=== PATIENT | male | born 1985 | race Caucasian/White ===

== ENCOUNTER 2022-02-03 21:55 | Emergency (ER) | payer MEDICAID, SELFPAY ==
[2022-02-03 21:56] VITALS: BP 179/106; PULSE 95; RESP 16; TEMP 36.2; O2SAT 97; BMI 40.5
[2022-02-03 22:59] LABS: Absolute Lymphocyte Count 1.82 X10^3/uL (0.83-4.51); Absolute Neutrophil Count 4.9 X10^3/uL (2.0-7.7); Basophil# 0.03 X10^3/uL; Basophil% 0.4 % (0-1); Eosinophil# 0.12 X10^3/uL; Eosinophils% 1.6 % (0-5); Hematocrit 44.5 % (40-54); Lymphocyte # 1.82 X10^3/ul (0.83-4.51); Lymphocyte % 24.4 % (19-41); Mean Corp Hgb Conc 33.7 g/dL (32-36); Mean Corpuscular Hgb 30.2 pg (27.0-32.0); Mean Corpuscular Volume 89.7 fL (80-94); Mean Platelet Vol. 10.3 fl (6.2-12.0); Monocyte# 0.62 X10^3/uL; Monocyte% 8.3 % (0-10); NRBC Flagged by Analyzer 0 % (0-5); Neutrophil # 4.86 X10^3/uL (2.7-7.7); Platelet Count 268 K/mm3 (150-450); RBC Distribution Width CV 13.6 % (11.6-14.6); RBC Distribution Width SD 45.1 fl (35.1-43.9); Red Blood Count 4.96 M/mm3 (4.6-6.2); White Blood Count 7.5 K/mm3 (4.4-11.0)
[2022-02-03 23:00] LABS: Bacteria 0 SEEN /hpf (None Seen); Mucous, Urine 0 SEEN /hpf (<or=2+); Squamous Epithelial Cells - UA 0 SEEN /hpf (0-5)
[2022-02-03 23:06] LABS: Color, Urine Yellow (Yellow); Glucose, Dipstick Normal (Normal); Ketone-Dipstick Negative (Negative); Leukocyte Esterase-Dipstick Negative /ul (Negative); Nitrite-Dipstick Negative (Negative); Occult Blood-Urine 250 /ul (Negative); Protein-Dipstick 30 mg/dl (Negative); Urine Bilirubin Dipstick Negative (Negative); Urine Clarity Cloudy (Clear); Urine Urobilinogen Normal (Normal)
[2022-02-03 23:13] LABS: Anion Gap 5 (5-15); BUN 11 mg/dL (7-18); BUN/Creat Ratio 11.3 RATIO (10-20); Calcium,Total 9.2 mg/dL (8.5-10.1); Chloride 107 mmol/L (98-107); Creatinine, Serum 0.97 mg/dL (0.70-1.30); EST Glomerular Filtration Rate 94 mL/min (>60); Est Glom Filt Rate - Afr Amer 113 mL/min (>60); Estimated Creatinine Clearance 128.25 ml/min; Glucose 106 mg/dL (74-106); Potassium 4.1 mmol/L (3.5-5.1); Sodium Level 141 mmol/L (136-145)
[2022-02-03 23:13] LABS: White Blood Cells 0-5 SEEN /hpf (0-5)
[2022-02-03 23:14] LABS: Red Blood Cells-Urine > 100 SEEN /hpf (0-5)
[2022-02-03 23:38] LABS: International Normalized Ratio 1.1; Prothrombin Time (Protime)PT. 13.4 SECONDS (11.7-14.9)
[2022-02-03 23:39] LABS: Partial Thromboplast Time 42.9 Seconds (24.1-36.2)
--- NOTE | 2022-02-04 00:17 | EDS_ITS ---
HPI History of Present Illness Chief Complaint: Complaint Narrative Narrative: Patient is a 36-year-old male who states that today he urinated and noticed there was bright red blood in it. He states it was almost clotted. He denies any trauma. He denies any fevers or chills or dysuria. He denies any testicular pain or masses. He states he went over to a friend's house who was a nurse who performed a urine sample on him and it did show blood. He states that they had concerned this could be related to a kidney stone so he decided to come in for evaluation. He states despite this concern for kidney stone he does not have any back pain and he reports he has never had any type of stones in the past. PFSH PFSH Home Medications NK 02/03/22 [History Last Taken Unknown] Allergy/AdvReac Type Severity Reaction Status Date / Time No Known Allergies Allergy Verified 02/03/22 21:56 Social History Smoking Status: Light Smoker (<10/day) ROS [facility] ED Constitutional Constitutional ED: Denies chills or fever(s) ENT ENT ED: Denies sore throat Cardiovascular Cardiovascular: Denies chest pain Respiratory/Chest Respiratory/Chest: Denies cough or dyspnea Gastrointestinal Gastrointestinal: Denies abdominal pain, diarrhea, nausea or vomiting Genitourinary Genitourinary ED: Reports hematuria; Denies dysuria Musculoskeletal Musculoskeletal: Denies back pain or myalgias Integumentary Denies rash Neurologic Neurologic: Denies headache(s) Hematologic/Lymphatic Hematologic/Lymphatic: Denies easy bleeding or easy bruising EXAM Physical Exam Const Vital Signs: 02/03/22 21:56 02/04/22 00:23 Temperature 97.1 F L Temperature Source Temporal Pulse Rate 95 81 Respiratory Rate 16 15 Blood Pressure 179/106 H Blood Pressure Mean 130 Pulse Ox 97 97 Oxygen Delivery Method Room Air Positive well nourished and well developed General Appearance ED: well developed Eyes PERRL and EOMs intact bilaterally Neck supple Resp normal respiratory effort and clear to auscultation bilaterally Cardio regular rate and regular rhythm GI normal to inspection, nondistended, normoactive bowel sounds, non-tender, non- distended and no masses Auscultation: normoactive bowel sounds Palpation: soft Narrative: Patient deferred Back/Spine no CVA tenderness Extremity normal to inspection Neuro oriented x3 and CN's II-XII intact bilaterally Sensorium / Orientation: alert Motor Exam: strength 5/5 throughout Psych mental status grossly normal Skin no rashes or lesions noted MDM MDM MDM Narrative Medical decision making narrative: Patient presented to the ER hypertensive but otherwise with stable vital. He reported hematuria without dysuria trauma or back pain. As he did not have any report of back pain and no CVA tenderness on exam I did not feel was necessary to perform a CT scan to check for possible kidney stone as his presentation is atypical for this. Basic blood work and a urine sample were obtained. Blood work revealed no clinically significant finding. Urine did show changes consistent with hematuria but no signs of infection. As patient also does not have any type of rectal pain or discharge or white blood cells within his urine I do not feel this is prostatitis. Patient states he does have a remote history of bladder rupture needing reconstruction. I feel that with this history he is most likely sloughing some scar tissue into the bladder leading to his intermittent hematuria. As he is not need of a blood transfusion and he is not thrombocytopenic or showing acute kidney injury there is no need for further work-up. He can follow-up with urology on an outpatient basis to further assess his hematuria. Lab Data Attestation: I reviewed the patient's lab results. Labs: Laboratory Results - last 24 hr 02/03/22 02/03/22 02/03/22 22:47 22:47 22:47 WBC 7.5 RBC 4.96 Hgb 15.0 Hct 44.5 MCV 89.7 MCH 30.2 MCHC 33.7 RDW Std Deviation 45.1 H RDW Coeff of Shubham 13.6 Plt Count 268 MPV 10.3 Immature Gran % (Auto) 0.300 Neut % (Auto) 65.0 Lymph % (Auto) 24.4 [place] % (Auto) 8.3 Eos % (Auto) 1.6 Baso % (Auto) 0.4 Absolute Neuts (auto) 4.9 Absolute Lymphs (auto) 1.82 Nucleated RBC % 0 PT Cancelled INR Cancelled APTT Cancelled Sodium 141 Potassium 4.1 Chloride 107 Carbon Dioxide 29.0 Anion Gap 5 BUN 11 Creatinine 0.97 Estim Creat Clear Calc 128.25 Est GFR (MDRD) Af Amer 113 Est GFR (MDRD) Non-Af 94 BUN/Creatinine Ratio 11.3 Glucose 106 Calcium 9.2 Urine Color Urine Clarity Urine pH Ur Specific [place] Urine Protein Urine Glucose (UA) Urine Ketones Urine Occult Blood Urine Nitrite Urine Bilirubin Urine Urobilinogen Ur Leukocyte Esterase Urine RBC Urine WBC Ur Squamous Epith Cells Urine Bacteria Urine Mucus 02/03/22 02/03/22 22:55 23:25 WBC RBC Hgb Hct MCV MCH MCHC RDW Std Deviation RDW Coeff of [place] Plt Count MPV Immature Gran % (Auto) Neut % (Auto) Lymph % (Auto) [place] % (Auto) Eos % (Auto) Baso % (Auto) Absolute Neuts (auto) Absolute Lymphs (auto) Nucleated RBC % PT 13.4 INR 1.1 APTT 42.9 H Sodium Potassium Chloride Carbon Dioxide Anion Gap BUN Creatinine Estim Creat Clear Calc Est GFR (MDRD) Af Amer Est GFR (MDRD) Non-Af BUN/Creatinine Ratio Glucose Calcium Urine Color Yellow Urine Clarity Cloudy Urine pH 6.0 Ur Specific [place] 1.020 Urine Protein 30 H Urine Glucose (UA) Normal Urine Ketones Negative Urine Occult Blood 250 H Urine Nitrite Negative Urine Bilirubin Negative Urine Urobilinogen Normal Ur Leukocyte Esterase Negative Urine RBC > 100 SEEN Urine WBC 0-5 SEEN Ur Squamous Epith Cells 0 SEEN Urine Bacteria 0 SEEN Urine Mucus 0 SEEN Discharge Plan Triage Chief Complaint: Complaint ED Provider: Reji Paniagua Dx/Rx/DC Orders Clinical Impression: Hematuria Instructions: ED Hematuria Prescriptions: No Action NK RF: 0 Primary Care Provider: Hector Paulson Referrals: Hector Paulson DO [Primary Care Provider] - Aquiles Steward MD [STAFF PHYSICIAN] - 5-7 Days Activity Restrictions/Additional Instructions: Please stay well-hydrated and follow-up with urology to discuss further testing for your hematuria and return to the ER should you have any further concerns Disposition Disposition: Home, Self Care Discharge Date/Time: 02/04/22 00:24
[2022-02-04 00:23] VITALS: PULSE 81; RESP 15; O2SAT 97
== END 2022-02-04 00:24 | disposition home or self-care (01) ==
PROVIDERS: Emergency Provider Emergency Medicine; PCP Family Medicine; Visit Provider Emergency Medicine
DX: R31.9 Hematuria, unspecified (principal); F17.200 Nicotine dependence, unspecified, uncomplicated
CPT/HCPCS: 80048; 81001; 85025; 85610; 85730; 99282; A4216